=== PATIENT | female | born 1995 | race African-American/Black ===

== ENCOUNTER 2023-02-04 12:18 | Emergency (ER) | payer OTHER ==
[~2023-02-04] VITALS: Ht 149.9 cm; Wt 47.6 kg
[2023-02-04 12:47] LABS: PLATELET COUNT 249 K/uL (152-353)
[2023-02-04 12:57] LABS: POTASSIUM 3.1 mmol/L (3.6-5.2); SODIUM 139 mmol/L (136-145)
[2023-02-04 12:58] LABS: PARTIAL THROMBOPLASTIN TIME 37.1 SECONDS (23.9-36.7)
[2023-02-04 16:30] VITALS: BP 115/79; TEMP 98.4
== END 2023-02-04 16:30 | disposition home or self-care (01) ==
LOC: ED 12:27
PROVIDERS: Emergency Medicine
DX: R55 Syncope and collapse (principal)
CPT/HCPCS: 80053; 80307; 81002; 81025; 84484; 85027; 85610; 85730; 93005; 96361; 96374; 96376; 99284; J2405